=== PATIENT | male | born 1995 | race Caucasian/White ===

== ENCOUNTER 2021-02-14 23:16 | Emergency (ER) | payer BC ==
[~2021-02-14] VITALS: Ht 193 cm; Wt 104.3 kg
[~2021-02-14 23:16] MED LIST: CLEOCIN HCL150 MG; CLEOCIN HCL150 MG PO; DEXAMETHASONE6 MG; HYDROCODONE-ACE15 ML PO; LORTAB; PREDNISONE 10 M10 M1 PO; PROMETHAZINE12.5 M4 RE; ZOFRAN ODT4 MG PO
[2021-02-15 00:46] LABS: ABSOLUTE BASOPHILS 0.1 thou/uL (0.0-0.2); ABSOLUTE EOSINOPHILS 0.1 thou/uL (0.0-0.7); ABSOLUTE LYMPHOCYTES 1.7 thou/uL (0.8-5.3); ABSOLUTE MONOCYTES 0.7 thou/uL (0.0-1.2); BASOPHILS 0.5 %; EOSINOPHILS 0.8 %; HEMATOCRIT 43.7 % (42.0-52.0); HEMOGLOBIN 14.9 gm/dL (14.0-18.0); LYMPHOCYTES 17.6 %; MCHC 34.1 g/dL (28.0-37.0); MCV 87.9 fL (80.0-100.0); MPV 8.8 fl. (7.2-11.1); NUCLEATED RBCS 0 /100WBC; PLATELET COUNT* 189 thou/uL (150-400); POLYS 74.1 %; RBC 4.97 mil/uL (4.50-6.00); RDW-CV 13.8 % (10.5-14.5); WBC 9.5 thou/uL (4.0-11.0)
[2021-02-15 00:54] LABS: CALCIUM 10.1 mg/dL (8.5-10.1); CREATININE 1.3 mg/dL (0.6-1.3)
[2021-02-15] MEDS ORDERED: HYDROCODON-ACE1 EAC8 PO (00:59)
[2021-02-15] MEDS ORDERED: ERYTHROMYCIN E3.5 G3 OPHTHALMIC (00:59)
[2021-02-15] MEDS ORDERED: CEPHALEXIN250 MG PO (00:59)
[2021-02-15] MEDS ORDERED: BACTRIM DS TAB1 EACH PO (00:59)
[2021-02-15 01:20] VITALS: BP 155/72
== END 2021-02-15 01:20 | disposition home or self-care (01) ==
LOC: M.ERS 23:16
PROVIDERS: Emergency Medicine
DX: S05.8X2A Other injuries of left eye and orbit, initial encounter (principal); L03.115 Cellulitis of right lower limb; F17.210 Nicotine dependence, cigarettes, uncomplicated; X58.XXXA Exposure to other specified factors, initial encounter; Y93.89 Activity, other specified; Y92.89 Other specified places as the place of occurrence of the external cause; Y99.8 Other external cause status